=== PATIENT | male | born 1950 | race Caucasian/White ===

== ENCOUNTER 2016-04-12 05:05 | Inpatient (IN) | payer OTHER, BC ==
[2016-03-29 12:56] LABS: HEMATOCRIT 52.3 % (42.0-52.0); MCH 29.8 pg (26.0-34.0); MCHC 34.4 % (28.0-37.0); MCV 86.5 fL (80.0-100.0); RBC 6.05 mil/uL (4.50-6.00); RDW 14.1 % (10.5-14.5); URINE BILIRUBIN NEGATIVE (Negative); URINE BLOOD NEGATIVE (Negative); URINE COLOR YELLOW; URINE GLUCOSE-RANDOM* NEGATIVE (Negative); URINE KETONES NEGATIVE (Negative); URINE LEUKOCYTES-REFLEX NEGATIVE (Negative); URINE PROTEIN (DIPSTICK) NEGATIVE (Negative); WBC 7.2 thou/uL (4.0-11.0)
[2016-03-29 13:04] LABS: CALCIUM 8.9 mg/dL (8.5-10.1); CREATININE 0.8 mg/dL (0.6-1.3)
[2016-03-29 13:15] LABS: INR 1.1; PROTIME 11.7 Seconds (9.3-11.4)
[~2016-04-12] VITALS: Ht 182.9 cm; Wt 124.3 kg
[2016-04-12] VITALS (8 sets, daily range): BP systolic 93–141; BP diastolic 58–96
--- NOTE | ~2016-04-12 | H ---
[facility] [place] [address] HISTORY AND PHYSICAL Name: MARIE CHRISTOPHER Room #: 541-P DIS IN M.R.#: [id number] Admission: 04/12/16 Attend Phys: Bari Santiago MD Discharge: 04/13/16 Date of : 46 Report #: [id number] THIS REPORT FOR: //name// For History and Physical, please see office documentation/handwritten note in the patient's medical record. <ELECTRONICALLY SIGNED> By: Bari Santiago MD 04/17/16 1420 0946 Bari Santiago MD /
--- NOTE | ~2016-04-12 | O ---
[facility] [place] [address] [address] [place] [address] OPERATIVE REPORT Name: ASHWINMARIEKLEBER ROBERTS Room #: 541-P [facility] IN M.R.#: [id number] Admission: 04/12/16 Attend Phys: Bari Santiago MD Discharge: 04/13/16 Date of : 46 Report #: [id number] THIS REPORT FOR: //name// CC: Clotilde Santiago DATE OF SERVICE: 04/12/2016 PREOPERATIVE DIAGNOSIS: Left shoulder degenerative joint disease, severe. POSTOPERATIVE DIAGNOSIS: Left shoulder degenerative joint disease, severe. OPERATIVE PROCEDURE: Left total shoulder arthroplasty. SURGEON: Bari Santiago M.D. MORTGAGE COLLECTOR: Eleuterio Romero, nurse practitioner. INDICATIONS FOR MORTGAGE COLLECTOR: During the course of operation, extensive manipulation, retraction and limb positioning was required. This was afforded to me by my land surveyor assistant. ANESTHESIA: General. INDICATIONS: See hospital H and P. IMPLANTS UTILIZED: We used a DePuy shoulder system. We used a Global Unite anatomic humeral stem, 136 degree size 12. We used an eccentric humeral head size 52 x 18. We used a [employer] [place] Peg Glenoid size 52. DESCRIPTION OF PROCEDURE: After adequate general anesthesia had been obtained, the patient was placed in the beach chair position. Left shoulder and upper extremity was prepped and draped in the usual meticulous sterile fashion. We made a deltopectoral incision. The Subq was divided sharply. Hemostasis obtained with cautery. The deltopectoral groove was identified. The cephalic vein was mobilized and retracted medially with a pectoralis tendon. The pectoralis was released proximally to about a cm. We then retracted this layer. The conjoined tendon was mobilized and retracted medially. The biceps groove had a very large loose body within it. This loose body was removed and then we unroofed the biceps tendon. It was tenodesed to the pectoralis tendon and then excised. We then incised the rotator interval and then localized the vessels inferior to the subscapularis tendon. These were tied off with a Vicryl tie and then ligated and divided. The subscapula was then elevated off of the lesser tuberosity. The capsule was mobilized subperiosteally off the humerus to protect the axillary nerve. The axillary nerve was palpated and carefully [address] [address] OPERATIVE REPORT Name: MARIE CHRISTOPHER Room #: 541-P [facility] IN M.R.#: [id number] Admission: 04/12/16 Attend Phys: Bari Santiago MD Discharge: 04/13/16 Date of : 46 Report #: [id number] retracted out of harm's way. The capsule was then elevated around the posterior aspect of the humeral head to expose the entire humeral head. The patient had very large humeral head spurs, which were all removed with an osteotome and rongeur. We then marked the anatomic neck of the humeral head and then used the saw to resect it to about 30 degrees of retroversion. We placed the cap over the humeral head and then attention was directed to the glenoid. The subscapularis and the capsule were anteriorly and the capsule was excised. The labrum of the glenoid was resected and then the capsule elevated off of the glenoid anteriorly, inferiorly and posteriorly. We then placed retractors to expose the glenoid. The drill guide for the glenoid component was put into position. I elected to use the 3-mm offset to account for some posterior glenoid erosion. The glenoid was then reamed preferentially anteriorly until we had a good flat surface. The superior and inferior portions of the glenoid were then smoothed with the rasp. We placed a guidepin into this guide and then drilled the peg hole. The 52 guide was selected as that matched the patient's glenoid size. We then placed a drill guide into position and the 3D rotation drill holes were drilled. The wound was then irrigated copiously. We trialled the glenoid component and it sat flush with the glenoid. The wound was irrigated copiously. We placed bone graft in the central peg of the glenoid. The cement was then mixed and when it reached appropriate consistency, the glenoid was dried thoroughly. We placed cement in the peg holes and then impacted the glenoid into position. Excellent fixation was obtained. We held it in position under compression until the cement fully cured. At this time, the wound was irrigated copiously once again and the humerus was delivered back into the wound. The humerus was sequentially reamed to a size 12. We got cortical contact with the 12, and so I elected to use a 12 implant. We used the box osteotome and used that well on the proximal portion of the humerus. We then placed the broach and trial head component. We used the eccentric head within posterior and inferior and they gave us the best coverage. We then trialed the humerus and it subluxated approximately 50% of the humeral head with posteriorly and it then reduced spontaneously. We could anteriorly rotate it in the scarecrow position to about 30 degrees and the subscapula was not under undue tension with the shoulder in neutral position. At this time, the trial components were removed. Drill holes were placed in the lesser tuberosity for the subscapularis repair. The #2 FiberWire sutures were placed through these drill holes. We irrigated the wound copiously. I then assembled the humeral stem on to the newspaper inserter. The stem was then impacted into position with sitting by about 5 mm. We then placed the head in the appropriate rotation, impacted into place and did the terminal impaction with the head in position until it was seated on the humerus. The wound was irrigated copiously once again. We reduced the humerus. The rotator cuff was inspected. We did a subscapularis repair using the sutures we had placed to the lesser tuberosity and these were tied with FiberWire. I then closed the interval with a #1 Tevdek slightly and then we irrigated the wound copiously [address] [address] OPERATIVE REPORT Name: MARIE CHRISTOPHER Room #: 541-P DIS IN M.R.#: [id number] Admission: 04/12/16 Attend Phys: Bari Santiago MD Discharge: 04/13/16 Date of : 46 Report #: [id number] once again. Vancomycin powder was then placed in the wound. We placed a drain superolaterally. The deltoid fascia was closed with a running 2-0 Monocryl, subq closed with 2-0 Monocryl and skin closed with heber. Sterile compressive dressing applied. <ELECTRONICALLY SIGNED> By: Bari Santiago MD 04/17/16 1420 1103 [id number] Bari Santiago MD /emir
[~2016-04-12 05:05] MED LIST: ASPIR 8181 MG; BARIATRIC ADVANTAGE PO; CALCIUM CITRATE PO; CALCIUM500 MG PO; CARDIZEM CD240 MG PO; COLACE100 MG PO; DYAZIDE 37.5-21 EACH PO; ELIQUIS2.5 MG PO; ELIQUIS5 MG PO; GLUCOPHAGE500 MG PO; GLUMETZA500 PO; LISINOPRIL-HCT1 EAC2 PO; LISINOPRIL20 MG PO; PERCOCET 10-321 EACH PO; PRAVACHOL40 MG PO; PRAVASTATIN SOD40 MG PO; SENNA PO; TYLENOL325 MG PO; UNICOMPLEX M TA1 TA1 PO; WELLBUTRIN SR150 MG PO; XARELTO10 MG PO
[2016-04-13 05:00] VITALS: BP 138/93
[2016-04-13 05:47] LABS: HEMATOCRIT 48.4 % (42.0-52.0); HEMOGLOBIN 15.9 gm/dL (14.0-18.0)
[2016-04-13] MEDS ORDERED: ELIQUIS2.5 MG PO (06:50)
[2016-04-13 07:56] VITALS: BP 122/86
[2016-04-13 12:06] VITALS: BP 122/86
== END 2016-04-13 13:50 | disposition home health service (06) | DRG 483 ==
LOC: 5S 05:05 → TBA 05:05 → PRE 11:30 → 5S 12:43 → PRE 14:48 → 5S 04-13 13:50
PROVIDERS: Orthopaedic Surgery
PROC: 0RRK0JZ Replacement of Left Shoulder Joint with Synthetic Substitute, Open Approach (ICD-10-PCS; principal; 2016-04-12)
DX: M19.012 Primary osteoarthritis, left shoulder (principal); I10 Essential (primary) hypertension; E11.40 Type 2 diabetes mellitus with diabetic neuropathy, unspecified; E66.01 Morbid (severe) obesity due to excess calories; F43.10 Post-traumatic stress disorder, unspecified; I48.91 Unspecified atrial fibrillation; Z96.652 Presence of left artificial knee joint; Z98.52 Vasectomy status; Z82.61 Family history of arthritis; Z68.37 Body mass index [BMI] 37.0-37.9, adult
CPT/HCPCS: 10785; 50010; 50101; 50172; 50386; 50417; 50612; 50697; 50733; 50935; 51412; 51771; 52138; 53000; 53078; 55435; 56524; 56525; 56526; 56530; 57095; 62110; 62900; 70005